=== PATIENT | male | born 1940 | race Caucasian/White ===

== ENCOUNTER → 2017-07-27 09:54 | Outpatient (CLI) | payer MEDICARE, OTHER | END | disposition home or self-care (01) | LOC: D.NM 09:54 | DX: R10.9 Unspecified abdominal pain (principal); K21.9 Gastro-esophageal reflux disease without esophagitis ==

== ENCOUNTER → 2018-09-05 12:27 | Outpatient (CLI) | payer MEDICARE, OTHER | END | disposition home or self-care (01) | LOC: D.LAB 12:27 | DX: R19.7 Diarrhea, unspecified (principal) ==

== ENCOUNTER → 2018-09-12 13:15 | Outpatient (CLI) | payer MEDICARE, OTHER | END | disposition home or self-care (01) | LOC: D.LAB 13:15 | DX: R19.7 Diarrhea, unspecified (principal); K52.9 Noninfective gastroenteritis and colitis, unspecified; Z51.81 Encounter for therapeutic drug level monitoring; Z79.2 Long term (current) use of antibiotics ==

== ENCOUNTER → 2018-09-15 09:06 | Outpatient (CLI) | payer MEDICARE, OTHER | END | disposition home or self-care (01) | LOC: D.CT 09-14 08:00 | DX: R10.9 Unspecified abdominal pain (principal); R19.7 Diarrhea, unspecified ==

== ENCOUNTER → 2018-10-11 13:20 | Outpatient (CLI) | payer MEDICARE, OTHER | END | disposition home or self-care (01) | LOC: D.HCCARDIO 10-10 14:00 | DX: R07.9 Chest pain, unspecified (principal) ==

== ENCOUNTER 2019-09-11 07:44 | Day surgery (SDC) | payer MEDICARE, OTHER ==
[~2019-09-11] VITALS: Ht 172.7 cm; Wt 68.0 kg
[2019-09-11] MEDS ORDERED: PROSCAR5 MG PO (08:25)
[2019-09-11] MEDS ORDERED: LIPITOR20 MG PO (08:25)
[2019-09-11] MEDS ORDERED: CEREFOLIN TAB1 TAB PO (08:26)
[2019-09-11] MEDS ORDERED: NEXIUM20 MG PO (08:26)
[2019-09-11] MEDS ORDERED: ZANTAC300 MG PO (08:27)
[2019-09-11] MEDS ORDERED: BAYER CHEWABLE81 MG PO (08:27)
[2019-09-11] MEDS ORDERED: OMEGA-3100 MG PO (08:28)
[2019-09-11] MEDS ORDERED: CITRACAL + D E1 EACH PO (08:28)
[2019-09-11] MEDS ORDERED: TRIFLEX PO (08:29)
[2019-09-11] MEDS ORDERED: CENTRUM MEN'S1 EACH PO (08:29)
[2019-09-11] MEDS ORDERED: PROBIOTIC BLEN1 EACH PO (08:30)
[2019-09-11 08:47] VITALS: BP 149/69; Ht 172.7 cm; Wt 68.0 kg
[2019-09-11 09:11] LABS: HEMATOCRIT 42.1 % (42.0-54.0); HEMOGLOBIN 13.6 g/dL (13.5-17.5); MCH 31.3 pg (26.0-34.0); MCHC 32.3 g/dL (31.0-37.0); MCV 96.8 fL (80.0-100.0); MEAN PLATELET VOLUME 12.2 fL (7.4-10.4); RBC 4.35 10x6/uL (4.20-6.10); RDW 12.4 % (11.5-14.5); WBC 4.9 10x3/uL (4.8-10.8)
[2019-09-11] MEDS ORDERED: HYDROCODON-ACE1 EAC7 PO (10:53)
[2019-09-11] MEDS ORDERED: MIRALAX17 GM PO (10:53)
--- NOTE | 2019-09-11 13:08 | NUR ---
1240 IV REMOVED PT VOIDED ADEQUET AMT YELLOW URINE. DENIES PAIN AT THIS TIME. 1250 INSTRUCTIONS GIVEN AND PT D/C HOME
== END 2019-09-11 12:50 | disposition home or self-care (01) ==
LOC: D.OPS 07:44 → D.PAN 11:00 → D.OPS 12:50
PROVIDERS: Anesthesiology; ATTEND Surgery
DX: K64.8 Other hemorrhoids (principal); K64.5 Perianal venous thrombosis